=== PATIENT | male | born 1975 | race Caucasian/White ===

== ENCOUNTER → 2017-01-29 | Outpatient (CLI) | payer OTHER ==
[~2017-01-29] MED LIST: AMBIEN 10MG TAB10 MG PO; LOSARTAN POTAS100 MG PO; TRAZODONE 50MG50 MG PO; ULTRAM ER100 MG PO
== END ==
LOC: SL 13:09
DX: G47.30 Sleep apnea, unspecified (principal); G47.10 Hypersomnia, unspecified; E66.9 Obesity, unspecified